=== PATIENT | female | born 1995 | race Caucasian/White ===

== ENCOUNTER 2025-02-26 11:56 | Inpatient (IN) | payer OTHER ==
[~2025-02-26] VITALS: Ht 152.4 cm; Wt 93.0 kg
[2025-02-26 11:48] VITALS: BP 115/55
[~2025-02-26 11:56] MED LIST: MAGNESIUM SULFATE IN WATER 0.04 GM/ML IV.SOLN IV ONE; MAGNESIUM SULFATE IN WATER 4 GM/100 ML PIGGYBACK IV ONE
[2025-02-26] MEDS ORDERED: MAGNESIUM SULFATE IN WATER 500 ML IV SCH (12:00)
[2025-02-26] MEDS ORDERED: RINGERS SOLUTION,LACTATED 1,000 ML IV SCH (12:00)
[2025-02-26] MEDS ORDERED: MAGNESIUM SULFATE IN WATER 100 ML IV ONE (12:00)
[2025-02-26] MEDS ORDERED: PRENATABS RX T1 EACH PO (12:56)
[2025-02-26] MEDS ORDERED: SYNTHROID75 MCG PO (12:56)
[2025-02-26 12:59] LABS: BASO % 0.4 % (0.1-1.2); EOS # 0.16 (0.04-0.54); EOS % 1.1 % (0.7-7.0); LYMPH # 2.50 (1.18-3.74); LYMPH % 17.2 % (19.3-53.1); MEAN PLATELET VOLUME 10.10 fl (9.4-12.4); MONO # 0.49 (0.24-0.82); MONO % 3.4 % (4.7-12.5); NEUT # 11.29 (1.56-6.13); NEUT % 77.4 % (34.0-71.1); RED CELL DISTRIBUTION WIDTH 13.9 % (11.6-14.4)
[2025-02-26 13:02] VITALS: BP 128/67
[2025-02-26 13:16] VITALS: BP 131/74
[2025-02-26 13:31] VITALS: BP 130/68
[2025-02-26 13:31] LABS: INR 1.04
[2025-02-26 15:55] VITALS: BP 122/66
[2025-02-26 20:02] VITALS: BP 119/61
[2025-02-26] MEDS ORDERED: PATIENTS OWN MEDICATION (MEDICAMENTO EN PISO NEVERA) VAG SCH (21:00)
[2025-02-27 00:26] VITALS: BP 127/42
[2025-02-27 03:33] VITALS: BP 139/61
[2025-02-27 07:49] VITALS: BP 120/63
[2025-02-27 11:09] VITALS: BP 104/58; O2SAT 98
[2025-02-27 15:14] VITALS: BP 125/65
[2025-02-27 17:11] VITALS: BP 129/83
[2025-02-28 00:25] VITALS: BP 112/69
[2025-02-28 09:28] VITALS: BP 113/76
[2025-02-28] MEDS ORDERED: NIFEDIPINE 30 MG TAB.SA.OSM PO NR (14:00)
[2025-02-28 17:27] VITALS: BP 104/51
[2025-03-01 02:00] VITALS: BP 102/63
[2025-03-01 08:32] VITALS: BP 117/71
[2025-03-01] MEDS ORDERED: NIFEDIPINE 30 MG TAB.SA.OSM PO SCH (09:00)
[2025-03-01 16:18] VITALS: BP 105/68
[2025-03-02] VITALS: BP 105/67
[2025-03-02 09:22] VITALS: BP 121/72
[2025-03-02 15:40] VITALS: BP 102/70
[2025-03-03] VITALS: BP 96/62
[2025-03-03 08:00] VITALS: BP 108/70
[2025-03-03 16:00] VITALS: BP 103/68
[2025-03-03] MEDS ORDERED: CEFAZOLIN SODIUM 1,000 MG VIAL IV SCH (19:00)
[2025-03-04 00:47] VITALS: BP 105/63
[2025-03-04 08:58] VITALS: BP 103/67
[2025-03-04 18:47] VITALS: BP 108/67
[2025-03-05 00:50] VITALS: BP 106/70
[2025-03-05 08:00] VITALS: BP 116/76
[2025-03-05] MEDS ORDERED: POLYETHYLENE GLYCOL 3350 17 GM BLIST.PACK PO NR (12:00)
[2025-03-05 18:17] VITALS: BP 100/65
[2025-03-06] VITALS: BP 108/68
[2025-03-06 08:00] VITALS: BP 114/71
[2025-03-06] MEDS ORDERED: POLYETHYLENE GLYCOL 3350 17 GM BLIST.PACK PO SCH (09:00)
[2025-03-06 16:00] VITALS: BP 107/69
[2025-03-07] VITALS: BP 116/71
[2025-03-07 08:00] VITALS: BP 115/72
[2025-03-07 16:53] VITALS: BP 109/68
[2025-03-08 00:18] VITALS: BP 100/52; O2SAT 98
[2025-03-08 08:00] VITALS: BP 114/76
[2025-03-08] MEDS ORDERED: CETIRIZINE HCL 10 MG TABLET PO SCH (09:00)
== END 2025-03-08 16:03 | disposition home or self-care (01) | DRG 833 ==
LOC: LDR 11:56 → OB/GYN 02-27 13:58
PROVIDERS: ADMIT Obstetrics & Gynecology Gynecology; ATTEND Obstetrics & Gynecology Gynecology
PROC: 4A1HXCZ Monitoring of Products of Conception, Cardiac Rate, External Approach (ICD-10-PCS; principal; 2025-02-26)
PROC: BY4CZZZ Ultrasonography of Second Trimester, Single Fetus (ICD-10-PCS; 2025-03-01)
PROC: BU4CZZZ Ultrasonography of Uterus and Ovaries (ICD-10-PCS; 2025-03-01)
PROC: BY4CZZZ Ultrasonography of Second Trimester, Single Fetus (ICD-10-PCS; 2025-03-08)
PROC: BU4CZZZ Ultrasonography of Uterus and Ovaries (ICD-10-PCS; 2025-03-08)
DX: O34.32 Maternal care for cervical incompetence, second trimester (principal); O26.842 Uterine size-date discrepancy, second trimester; O36.8120 Decreased fetal movements, second trimester, not applicable or unspecified; O99.282 Endocrine, nutritional and metabolic diseases complicating pregnancy, second trimester; E03.9 Hypothyroidism, unspecified; O99.891 Other specified diseases and conditions complicating pregnancy; Z3A.23 23 weeks gestation of pregnancy